=== PATIENT | male | born 2000 | race Hispanic/Latino ===

== ENCOUNTER 2019-05-31 00:15 | Emergency (ER) | payer SELFPAY ==
[2019-05-31] MEDS ORDERED: Bupivacaine 0.5% 10 ML VIAL ONE (00:51)
[2019-05-31] MEDS ORDERED: Lidocaine 1% (PF) 30 ML VIAL ONE (00:51)
--- NOTE | 2019-05-31 07:23 | RAD ---
XR Hand Rt 3 View STANDARD History: Fracture. Trauma. Comparison: None. Findings: Intra-articular fracture base of the fourth metacarpal with dorsal subluxation. There is al so dorsal subluxation of the fifth carpometacarpal joint. Impression: 1. Intra-articular fracture base of the fourth metacarpal. 2. Dorsal subluxation of the fifth carpometacarpal joint with possible small osseous fragments at its base.
--- NOTE | 2019-05-31 07:29 | RAD ---
XR Wrist 3 Rt View STANDARD History: Post reduction Comparison: Radiograph same day Findings: Improved alignment fourth base fracture as well as the fifth carpal metacarpal fracture dis location. Impression: Improved alignment post reduction.
== END 2019-05-31 02:20 | disposition home or self-care (01) ==
LOC: ERS 00:15
DX: S62.316A Displaced fracture of base of fifth metacarpal bone, right hand, initial encounter for closed fracture (principal); W22.01XA Walked into wall, initial encounter
CPT/HCPCS: 26605; J2001; J3490